=== PATIENT | female | born 1945 | race Caucasian/White ===

== ENCOUNTER → 2016-07-14 | Outpatient (CLI) | payer MEDICARE, BC ==
--- NOTE | 2016-07-16 07:49 | MM ---
Reason for exam: screening (asymptomatic). Last mammogram was performed 1 year ago. History: Patient is postmenopausal. MG 3D Screening Mammo W/Cad Bilateral CC and MLO view(s) were taken. Prior study comparison: July 12, 2015, bilateral MG 3d screening mammo w/cad. July 10, 2014, bilateral MG screening mammo w CAD. July 07, 2013, bilateral digital screening mammo w/CAD. There are scattered fibroglandular densities. Focal asymmetry left upper outer quadrant unchanged. Global asymmetry on the right breast is also unchanged. Multiple round skin calcifications redemonstrated. ASSESSMENT: Benign, BI-RAD 2 RECOMMENDATION: Routine screening mammogram of both breasts in 1 year.
== END | disposition home or self-care (01) ==
LOC: RADMAMWWP 13:48
PROVIDERS: ATTEND Internal Medicine
DX: Z12.31 Encounter for screening mammogram for malignant neoplasm of breast (principal)
CPT/HCPCS: 77063; G0202

== ENCOUNTER → 2017-07-20 | Outpatient (CLI) | payer MEDICARE, BC ==
--- NOTE | 2017-07-21 16:22 | BD ---
EXAMINATION TYPE: MG DEXA axial skeleton. DATE OF EXAM: 07/20/2017 COMPARISON: 07.12.2015 CLINICAL HISTORY: 72 YR OLD FEMALE....ICD-10 CODE: Z78.0 POST MENOPAUSE W/O HRT Height: 61.2 Weight: 140 FRAX RISK QUESTIONS: Alcohol (3 or more units per day): NO Family History (Parent hip fracture): NO HIP FX Glucocorticoids (More than 3mos): YES ON AND OFF (Ex: prednisone, prednisolone, methylprednisolone, dexamethasone, and hydrocortisone). History of Fracture in Adulthood: YES Secondary Osteoporosis: NO 1. Type 1 Diabetes: NO 2. Hyperthyroidism: NO 3. Menopause before 45: NO 4. Malnutrition: NO 5. Chronic liver disease: NO Rheumatoid Arthritis: YES Current Tobacco Use: NO RISK FACTORS HISTORY OF: LT HUMERUS >50 YRS OLD Family History of Osteoporosis: YES, SISTER RA AND HIP REPLACEMENTS. Active: NOT VERY Diet low in dairy products/other sources of calcium: NO Postmenopausal woman: YES AT AGE 52 Lost more than 2 inches in height since high school: YES Frequent falls: UNSTEADY Hyperparathyroidism: NO Adrenal Insufficiency: NO MEDICATIONS: Prednisone or other steroids: IN THE PAST ON AND OFF FOR RA Thyroid Medications: YES, SYNTHROID, FOR 30 YRS Additional Medications: BP MEDS, CALCIUM AND MULTIVITAMIN, METHOTREXATE, TYLENOL Additional History: RA, BILAT TOTAL KNEES EXAM MEASUREMENTS: Bone mineral densitometry was performed using the Boostable System. Bone mineral density as measured about the Lumbar spine is: ----- L1-L4(G/cm2): 1.336 T Score Values are as follows: ----- L1: -0.4 ----- L2: 0.7 ----- L3: 1.5 ----- L4: 3.0 ----- L1-L4: 1.3 Bone mineral density has: Increased 1.9% since study of: 07.12.2015 Bone mineral density about the R hip (g/cm2): 0.812 Bone mineral density about the L hip (g/cm2): 0.805 T Score values are as follows: -----R Neck: -0.5 -----L Neck: -1.8 -----R Total: -1.6 -----L Total: -1.6 Bone mineral density has: Decreased -1.7% since study of: 07.12.2015 FRAX%s: THERE IS A 32.9% CHANCE OF A MAJOR OSTEOPOROTIC FX AND A 8.4% FOR HIP FX....PROBABILITY O F FX IN 10 YRS TIME IMPRESSION: Osteopenia (T Score between -2.5 and -1). There is slightly increased risk of fracture and the patient may be considered for treatment. Re-Screen 2-5 years. NOTE: T-SCORE=SD OF THE YOUNG ADULT MEAN.
--- NOTE | 2017-07-22 09:30 | MM ---
Reason for exam: screening (asymptomatic). Last mammogram was performed 1 year ago. History: Patient is postmenopausal. Physical Findings: A clinical breast exam by your physician is recommended on an annual basis and results should be correlated with mammographic findings. MG 3D Screening Mammo W/Cad Bilateral CC and MLO view(s) were taken. Prior study comparison: July 14, 2016, bilateral MG 3d screening mammo w/cad. July 12, 2015, bilateral MG 3d screening mammo w/cad. There are scattered fibroglandular densities. There is chronic nodularity in the right breast. Diffuse bilateral punctate and round calcifications are unchanged. No significant changes when compared with prior studies. ASSESSMENT: Benign, BI-RAD 2 RECOMMENDATION: Routine screening mammogram of both breasts in 1 year.
== END | disposition home or self-care (01) ==
LOC: RADMAMWWP 14:29
PROVIDERS: ATTEND Internal Medicine
DX: Z12.31 Encounter for screening mammogram for malignant neoplasm of breast (principal); M85.80 Other specified disorders of bone density and structure, unspecified site
CPT/HCPCS: 77063; 77067; 77080

== ENCOUNTER 2017-08-15 10:22 | Emergency (ER) | payer MEDICARE, BC ==
[2017-08-15 10:55] VITALS: RESP 18; TEMP 98.7
--- NOTE | 2017-08-15 11:27 | ED ---
Fall HPI - General Chief Complaint: Fall Stated Complaint: Fell/l side injury/head Time Seen by Provider: 08/15/17 11:04 Source: patient, family Mode of arrival: ambulatory - History of Present Illness Initial Comments: This is a 72-year-old female with a history of rheumatoid arthritis who states she got her left foot caught his walk this morning and fell striking the left side of her head against a brick wall chills or fell and complains now of some left elbow left hip and left knee pain. She no loss of consciousness no other injuries reported he states she was able ambulate after someone helped her up. But she still complains of pain in these areas she states the pain to her left hip radiates down to the knee she has had a left knee replacement in the past. No other modifying factors MD Complaint: fall - Related Data Home Medications Medication Instructions Recorded Confirmed Acetaminophen [Tylenol] 650 mg PO BID 11/17/14 11/22/14 Calcium Carbonate [Calcium] 1 tab PO DAILY 11/17/14 11/22/14 Folic Acid [Folic Acid] 1 mg PO DAILY 11/17/14 11/22/14 Levothyroxine Sodium [Synthroid] 125 mcg PO QAM 11/17/14 11/22/14 Lisinopril [Lisinopril] 10 mg PO QAM 11/17/14 11/22/14 Methotrexate Sodium [Methotrexate] 4 tab PO SA 11/17/14 11/22/14 Multivitamins, Thera [Multivitamin] 1 tab PO DAILY 11/17/14 11/22/14 Tylenol Arthritis 2 tab PO HS 11/17/14 11/22/14 Allergies Allergy/AdvReac Type Severity Reaction Status Date / Time erythromycin base Allergy "FOGGY" Verified 08/15/17 10:54 Tetracyclines Allergy "FOGGY" Verified 08/15/17 10:54 Review of Systems ROS Statement: Those systems with pertinent positive or pertinent negative responses have been documented in the HPI. ROS Other: All systems not noted in ROS Statement are negative. Past Medical History Past Medical History: Hypertension, Rheumatoid Arthritis (RA), Thyroid Disorder History of Any Multi-Drug Resistant Organisms: None Reported Past Surgical History: Appendectomy, Cholecystectomy, Joint Replacement, Orthopedic Surgery, Tonsillectomy Additional Past Surgical History / Comment(s): BILATERAL KNEE REPLACEMENT. JOINT REPLACEMENT ON LEFT HAND. RIGHT HAND. Additional Past Anesthesia/Blood Transfusion Reaction / Comment(s): HYPOTENSIVE Past Psychological History: No Psychological Hx Reported Smoking Status: Never smoker Past Alcohol Use History: None Reported Past Drug Use History: None Reported - Past Family History Father Family Medical History: Cancer Additional Family Medical History / Comment(s): LUNG Mother Family Medical History: Coronary Artery Disease (CAD) General Exam - General Exam Comments Initial Comments: This is a well-developed well-nourished awake alert oriented 3 female she does demonstrate a [place] Coma Scale of 15 Limitations: no limitations General appearance: alert, anxious Head exam: Present: normocephalic, other (Superficial abrasion and contusion noted to the left frontal parietal scalp no step-off or crepitation) Eye exam: Present: normal appearance, PERRL, EOMI. Absent: scleral icterus, conjunctival injection, periorbital swelling ENT exam: Present: normal exam, mucous membranes moist Neck exam: Present: normal inspection. Absent: tenderness, meningismus, lymphadenopathy Respiratory exam: Absent: chest wall tenderness Cardiovascular Exam: Present: regular rate, normal rhythm. Absent: systolic murmur, diastolic murmur, rubs, gallop, clicks Extremities exam: Present: tenderness, normal capillary refill, other (Patient does demonstrate the stigmata of rheumatoid arthritis she does have tenderness palpation of the left elbow left hip left knee. No step-off no crepitation. She was able ambulate but with some difficulty. She was assisted by her . No findings other than those mentioned. No other modifying factors) Back exam: Present: other (Kyphosis is demonstrated). Absent: tenderness, CVA tenderness (R), CVA tenderness (L), paraspinal tenderness, vertebral tenderness Neurological exam: Present: alert, oriented X3, CN II-XII intact Psychiatric exam: Present: normal affect, normal mood Skin exam: Present: warm, dry, normal color. Absent: intact Course Vital Signs 08/15/17 08/15/17 10:51 12:40 Temperature 98.7 F Pulse Rate 83 88 Respiratory 18 Rate Blood Pressure 205/93 165/78 O2 Sat by Pulse 99 98 Oximetry Medical Decision Making - Medical Decision Making The patient is resting comfortably she was able ambulate without difficulty twice less far I did discuss the findings with her and her no acute findings with respective fractures or dislocations on the imaging studies. Patient will be discharged her repeat blood pressure was improved. - Radiology Data Radiology results: report reviewed (I did review the imaging and reports no evidence of acute fractures or dislocations. CAT scan is negative for acute findings), image reviewed Disposition Clinical Impression: Fall, Left elbow contusion, Contusion of left hip, Scalp contusion, Scalp abrasion Disposition: HOME SELF-CARE Condition: Good Instructions: Fall Prevention for Older Adults (ED), Abrasion (ED), Hip Contusion (ED), Scalp Contusion in Adults (ED), Contusion in Adults (ED) Is patient prescribed a controlled substance at d/c from ED?: No Referrals: Leonard Mcelroy MD [Primary Care Provider] - 1-2 days
--- NOTE | 2017-08-15 12:06 | CT ---
EXAMINATION TYPE: CT brain wo con DATE OF EXAM: 08/15/2017 COMPARISON: NONE HISTORY: Fall, Lt side head injury CT DLP: 1017.[address] of the brain was performed. The ventricles, basal cisterns and sulci overlying the cerebral convexities demonstrate mild enlargem ent. There is no evidence for intracranial hemorrhage or sulcal effacement. There is decreased attenuation about the periventricular white matter and deep white matter of both c erebral hemispheres, compatible with chronic small vessel ischemia. Differential diagnosis does inclu de demyelination. No mass effects are seen.No midline shift. Osseous calvarium is intact. Small left parietal scalp hematoma. If symptoms persist consider MRI. IMPRESSION: 1. Age related atrophic and chronic small vessel ischemic change without acute intracranial process s een at this time.
--- NOTE | 2017-08-15 12:17 | XR ---
EXAMINATION TYPE: XR knee complete LT DATE OF EXAM: 08/15/2017 CLINICAL HISTORY: pain TECHNIQUE: Three views of the left knee are obtained. COMPARISON: None. FINDINGS: There is no acute fracture/dislocation. Total knee arthroplasty is in place. The tri-comp artment joint spaces appear within normal limits. The overlying soft tissue appears unremarkable. IMPRESSION: There is no acute fracture or dislocation ICD 10 NO FRACTURE, INITIAL EVALUATION
--- NOTE | 2017-08-15 12:19 | XR ---
EXAMINATION TYPE: XR Hip LT and AP Pelvis DATE OF EXAM: 08/15/2017 CLINICAL HISTORY: pain TECHNIQUE: AP and frogleg views of the left hip are obtained. COMPARISON: None. FINDINGS: There is no acute fracture/dislocation evident. The joint space appears within normal li mits. The overlying soft tissue appears unremarkable. IMPRESSION: 1. There is no acute fracture or dislocation.ICD 10 NO FRACTURE, INITIAL EVALUATION
--- NOTE | 2017-08-15 12:19 | XR ---
EXAMINATION TYPE: XR elbow complete LT DATE OF EXAM: 08/15/2017 CLINICAL HISTORY: pain TECHNIQUE: Frontal, lateral and oblique images of the left elbow are obtained. COMPARISON: None. FINDINGS: There is no acute fracture/dislocation evident of the elbow. Marked degenerative narrowing about the elbow joint. IMPRESSION: There is no acute fracture or dislocation of the elbow. ICD 10 NO FRACTURE, INITIAL EVALUATION
[2017-08-15 12:41] VITALS: BP 165/78; PULSE 88
--- NOTE | 2017-08-15 17:21 | XR ---
EXAMINATION TYPE: XR lumbar spine 2 or 3V DATE OF EXAM: 08/15/2017 CLINICAL HISTORY: pain TECHNIQUE: Three views of the lumbar spine are submitted. COMPARISON: None. FINDINGS: Severe multilevel degenerative disc disease at all levels. Endplate sclerosis and spondylosis seen. M oderate scoliosis convex to the left. No compression fracture seen. IMPRESSION: No acute fracture or dislocation is seen in the lumbar spine. ICD 10 NO FRACTURE, INITIAL EVALUATION
== END 2017-08-15 13:00 | disposition home or self-care (01) ==
LOC: EC 10:22
DX: S00.03XA Contusion of scalp, initial encounter (principal); S70.02XA Contusion of left hip, initial encounter; S50.02XA Contusion of left elbow, initial encounter; R40.2412 Glasgow coma scale score 13-15, at arrival to emergency department; M40.209 Unspecified kyphosis, site unspecified; M25.562 Pain in left knee; I10 Essential (primary) hypertension; M06.9 Rheumatoid arthritis, unspecified; E07.9 Disorder of thyroid, unspecified; Z79.891 Long term (current) use of opiate analgesic; Z79.899 Other long term (current) drug therapy; Z88.1 Allergy status to other antibiotic agents; Z96.653 Presence of artificial knee joint, bilateral; W18.09XA Striking against other object with subsequent fall, initial encounter; Y93.01 Activity, walking, marching and hiking; Y92.89 Other specified places as the place of occurrence of the external cause
CPT/HCPCS: 70450; 72100; 73502; 99283

== ENCOUNTER → 2018-08-06 | Outpatient (CLI) | payer MEDICARE, BC ==
--- NOTE | 2018-08-10 12:09 | MM ---
Reason for exam: screening (asymptomatic). Last mammogram was performed 1 year and 1 month ago. History: Patient is postmenopausal. Physical Findings: A clinical breast exam by your physician is recommended on an annual basis and results should be correlated with mammographic findings. MG 3D Screening Mammo W/Cad Bilateral CC and MLO view(s) were taken. Prior study comparison: July 20, 2017, bilateral MG 3d screening mammo w/cad. July 14, 2016, bilateral MG 3d screening mammo w/cad. The breast tissue is heterogeneously dense. This may lower the sensitivity of mammography. Benign appearing bilateral calcifications. No suspicious abnormality. Stable bilateral upper outer quadrant focal asymmetries. ASSESSMENT: Benign, BI-RAD 2 RECOMMENDATION: Routine screening mammogram of both breasts in 1 year.
== END | disposition home or self-care (01) ==
LOC: RADMAMWWP 15:00
PROVIDERS: ATTEND Internal Medicine
DX: Z12.31 Encounter for screening mammogram for malignant neoplasm of breast (principal)
CPT/HCPCS: 77063; 77067

== ENCOUNTER → 2018-09-13 | Outpatient (CLI) | payer MEDICARE, BC ==
--- NOTE | 2018-09-13 15:27 | XR ---
Right foot HISTORY: Pain 3 views of the right foot There is hypertrophic change at the intertarsal joints. Bone mineralization is reduced. Digits are fl exed which may limit sensitivity. Pes planus deformity is present. Hypertrophic changes are present a t the tibiotalar joint. There is a plantar calcaneal spur. Question some ankylosis, tarsal coalition in the hindfoot. IMPRESSION: Suspect pes planus deformity, osteoarthritis, possible tarsal coalition, osteopenia. Plan tar calcaneal spur.
== END | disposition home or self-care (01) ==
LOC: RADXRMAIN 12:29
PROVIDERS: ATTEND Podiatrist Foot Surgery
DX: M77.31 Calcaneal spur, right foot (principal)